=== PATIENT | female | born 1990 | race American Indian/Alaskan Native ===

== ENCOUNTER 2020-05-03 13:30 | Emergency (ER) | payer MEDICAID ==
[2020-05-03] MEDS ORDERED: dexAMETHasone 20 MG/5 ML VIAL IV ONE (13:43)
[2020-05-03] MEDS ORDERED: KETOROLAC 30 MG/1 ML INJ IM ONE (13:43)
--- NOTE | 2020-05-03 14:02 | Emergency Department Report ---
ED General Adult HPI - General Chief complaint: Fall Stated complaint: NECK/BACK PAIN/ SWOLLEN FACE Time Seen by Provider: 05/03/20 13:42 Source: patient Mode of arrival: Ambulatory Limitations: No Limitations - History of Present Illness Initial comments: 29-year-old -[place] female patient presents with complaints of worsening back pain and neck pain after a fall yesterday. Patient states she was seen at [facility] and had a CAT scan of her head and neck and low back performed and when they were negative for any fractures. She states she was sent home with ibuprofen and it is not helping with her pain. She rates her pain as a 10/10 in severity and describes it as a stiffness. Pain worsens with sitting and radiates down her legs bilaterally. She denies any numbness/tingling/weakness in her limbs, difficulty with walking, or loss of bladder/bowel control. - Related Data Previous Rx's Medication Instructions Recorded Last Taken Type Acetaminophen/Codeine [Tylenol 1 tab PO Q8H PRN #10 tab 05/03/20 Unknown Rx /Codeine # 3 tab] Cyclobenzaprine [Flexeril] 10 mg PO TID PRN #20 tablet 05/03/20 Unknown Rx Diclofenac Sodium 75 mg PO BID PRN #14 tablet. 05/03/20 Unknown Rx Allergies Allergy/AdvReac Type Severity Reaction Status Date / Time No Known Allergies Allergy Unverified 05/03/20 13:34 ED Review of Systems ROS: Stated complaint: NECK/BACK PAIN/ SWOLLEN FACE Other details as noted in HPI Constitutional: denies: chills, fever, malaise Eyes: denies: vision change Respiratory: denies: cough, shortness of breath Cardiovascular: denies: chest pain Gastrointestinal: denies: abdominal pain, nausea, vomiting, hematochezia Genitourinary: denies: urgency, hematuria Musculoskeletal: back pain Skin: denies: rash, lesions Neurological: denies: headache, numbness, paresthesias ED Past Medical Hx - Past Medical History Previous Medical History?: No - Surgical History Additional Surgical History: WRIST / FINGER - Social History Smoking Status: Current Every Day Smoker Substance Use Type: None - Medications Home Medications: Home Medications Medication Instructions Recorded Confirmed Last Taken Type Acetaminophen/Codeine [Tylenol 1 tab PO Q8H PRN #10 tab 05/03/20 Unknown Rx /Codeine # 3 tab] Cyclobenzaprine [Flexeril] 10 mg PO TID PRN #20 tablet 05/03/20 Unknown Rx Diclofenac Sodium 75 mg PO BID PRN #14 tablet. 05/03/20 Unknown Rx ED Physical Exam - General Limitations: No Limitations ED Course Vital Signs 05/03/20 05/03/20 13:37 15:35 Temperature 99.2 F Pulse Rate 129 H 78 Respiratory 16 18 Rate Blood Pressure 137/98 Blood Pressure 128/84 [Left] O2 Sat by Pulse 98 100 Oximetry ED Medical Decision Making - Medical Decision Making 29-year-old -[place] female patient presents with complaints of worsening back pain and neck pain after a fall yesterday. Patient states she was seen at [facility] and had a CAT scan of her head and neck and low back performed and when they were negative for any fractures. She states she was sent home with ibuprofen and it is not helping with her pain. She rates her pain as a 10/10 in severity and describes it as a stiffness. Pain worsens with sitting and radiates down her legs bilaterally. She denies any numbness/tingling/weakness in her limbs, difficulty with walking, or loss of bladder/bowel control. Patient is neurologically intact and denies any red flag symptoms. Pain improved with medications given here in ED. No motor deficits noted on exam. She is well-appearing and stable for discharge home. Discussed sciatica, stretches, for follow-up with primary care. Also discussed signs and symptoms that should prompt immediate return to the emergency department in detail with patient who verbalized understanding. Critical care attestation.: If time is entered above; I have spent that time in minutes in the direct care of this critically ill patient, excluding procedure time. ED Disposition Clinical Impression: Low back pain with bilateral sciatica Qualifiers: Chronicity: acute Back pain laterality: bilateral Qualified Code(s): M54.42 - Lumbago with sciatica, left side; M54.41 - Lumbago with sciatica, right side Disposition: TO HOME OR SELFCARE Is pt being admited?: No Condition: Stable Instructions: Sciatica, Sciatica Rehab-SportsMed Prescriptions: Diclofenac Sodium 75 mg PO BID PRN #14 tablet. 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
[2020-05-03 15:36] VITALS: BP 128/84
== END 2020-05-03 16:38 | disposition home or self-care (01) ==
LOC: ED 13:30
DX: M54.42 Lumbago with sciatica, left side (principal); M54.41 Lumbago with sciatica, right side; F17.200 Nicotine dependence, unspecified, uncomplicated; Z98.890 Other specified postprocedural states; Z79.899 Other long term (current) drug therapy
CPT/HCPCS: 96372; 96374; 99282; J1100; J1885